=== PATIENT | male | born 1975 | race Caucasian/White ===

== ENCOUNTER → 2018-09-16 | Outpatient (CLI) | payer MEDICARE ==
--- NOTE | 2018-09-16 10:57 | RADIOLOGY REPORT (SQ) ---
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 TECHNIQUE: CT scan of the chest performed using helical scanning technique with dynamic intravenous contrast injection. Images reviewed with lung, soft tissue and bone windows. Reconstructed coronal and sagittal MPR and MIP images reviewed. All images stored on PACS. All CT scanners at this facility use dose modulation, iterative reconstruction, and/or weight based d osing when appropriate to reduce radiation dose to as low as reasonably achievable (ALARA). [facility]: Dose Right [facility]: CareDose [facility]: Dose Right [facility]: Teradose 4D [facility]: [employer] RENAL FUNCTION: Within acceptable limits. RADIATION DOSE: . LIMITATIONS: None. FINDINGS: LUNGS AND PLEURA: Innumerable bile oral scattered lung nodules throughout all lobes. Cons istent with metastatic disease. Largest right lung lesion measures 2.7 cm maximal dimension in the a pex of the right lower lobe (image 52). Largest left nodules are in the left lower lobe and measure close to 2.3 cm maximal dimension in the transverse plane (images 90 and 99) HILAR AND MEDIASTINAL STRUCTURES: No identified masses or abnormal nodes. HEART AND VASCULAR STRUCTURES: No aneurysm or dissection. No central pulmonary emboli. No pericardi al effusion. HARDWARE: Right port. UPPER ABDOMEN: See separate dictation from same date. There are liver lesions present consistent wit h metastatic disease. THYROID AND OTHER SOFT TISSUES: No masses. No adenopathy. BONES: No significant finding. OTHER: No other significant finding. IMPRESSION: 1. Numerous bilateral pulmonary metastases as above. TECHNICAL DOCUMENTATION: JOB ID: [id number] Quality ID # [id number]: Final reports with documentation of one or more dose reduction techniques (e.g., Au tomated exposure control, adjustment of the mA and/or kV according to patient size, use of iterative reconstruction technique) 2010 [employer]- All Rights Reserved Reading location - IP/workstation name: [email or web address]
--- NOTE | 2018-09-16 11:02 | RADIOLOGY REPORT (SQ) ---
EXAM DESCRIPTION: CT ABD/PELVIS WITH IV ORAL COMPLETED DATE/TIME: 09/16/2018 9:38 am REASON FOR STUDY: COLON CA (C18.9) C18.9 MALIGNANT NEOPLASM OF COLON, UNSPECIFIED COMPARISON: None. TECHNIQUE: CT scan of the abdomen and pelvis performed with intravenous and oral contrast using adryan sravanthi scanning technique with dynamic intravenous contrast injection. Images reviewed with lung, soft t issue, and bone windows. Reconstructed coronal and sagittal MPR images reviewed. Delayed images for e valuation of the urinary system also acquired. All images stored on PACS. All CT scanners at this facility use dose modulation, iterative reconstruction, and/or weight based d osing when appropriate to reduce radiation dose to as low as reasonably achievable (ALARA). [facility]: Dose Right [facility]: CareDose [facility]: Dose Right [facility]: Teradose 4D [facility]: [employer] CONTRAST TYPE AND DOSE: contrast/concentration: Isovue 350.00 mg/ml; Total Contrast Delivered: 100.0 ml; Total Saline Delivered: 72.0 ml RENAL FUNCTION: Within acceptable limits. RADIATION DOSE: CT Rad equipment meets quality standard of care and radiation dose reduction techniq ues were employed. CTDIvol: 7.4 - 8.0 mGy. DLP: 1175 mGy-cm.. LIMITATIONS: None. FINDINGS: LOWER CHEST: Please see separately dictated CT chest from same date. LIVER: Numerous ill-defined masses are identified in the liver. Some of these are ill marginated. L argest probably measures close to 7 cm. Present in both the right and left lobes. Portal adenopathy with confluent tissue measuring up to 4.5 cm in the transverse plane. Nearly 6 cm craniocaudal. SPLEEN: Normal size. No focal lesions. PANCREAS: No masses. No significant calcifications. No adjacent inflammation or peripancreatic fluid collections. Pancreatic duct not dilated. GALLBLADDER: Surgically absent. ADRENAL GLANDS: No significant masses or asymmetry. RIGHT KIDNEY AND URETER: No solid masses. No significant calcification. No hydronephrosis or hydroure ter. LEFT KIDNEY AND URETER: No solid masses. No significant calcification. No hydronephrosis or hydrouret er. AORTA AND VESSELS: Normal caliber aorta. No dissection or aneurysm. Patent major arterial structure s. No venous clot. RETROPERITONEUM: Shotty subcentimeter retroperitoneal nodes. BOWEL AND PERITONEAL CAVITY: Suture line in the rectum. Remaining large bowel looks normal. No smal l bowel or gastric pathology demonstrated. APPENDIX: Surgically absent. PELVIS: No significant masses. Normal bladder. No free fluid. ABDOMINAL WALL: No masses. No hernias. BONES: No significant or acute findings. OTHER: Infusion pump along the left lower quadrant with catheter projecting into the right upper quad rant. IMPRESSION: 1. Numerous liver metastases with adjacent portal adenopathy. 2. Other findings as above. TECHNICAL DOCUMENTATION: JOB ID: [id number] Quality ID # [id number]: Final reports with documentation of one or more dose reduction techniques (e.g., Au tomated exposure control, adjustment of the mA and/or kV according to patient size, use of iterative reconstruction technique) 2010 [employer]- All Rights Reserved Reading location - IP/workstation name: [email or web address]
== END ==
LOC: RAD 08:42
PROVIDERS: ATTEND Internal Medicine Hematology & Oncology
DX: C18.9 Malignant neoplasm of colon, unspecified (principal); C78.7 Secondary malignant neoplasm of liver and intrahepatic bile duct; C78.02 Secondary malignant neoplasm of left lung; C78.01 Secondary malignant neoplasm of right lung
CPT/HCPCS: 71260; 74177